=== PATIENT | female | born 1990 | race American Indian/Alaskan Native ===

== ENCOUNTER 2018-09-18 19:37 | Emergency (ER) | payer SELFPAY ==
[~2018-09-18] VITALS: Ht 157.5 cm; Wt 59.1 kg
[~2018-09-18 19:37] MED LIST: DIPH-423 PO; EPIN0.3A3 IM; EPIN0.3P3 IM; PRED20TA PO
[2018-09-18] MEDS ORDERED: predniSONE 20 mg tablet PO ONE (20:00)
[2018-09-18] MEDS ORDERED: famotidine 20mg tablet PO ONE (20:00)
[2018-09-18] MEDS ORDERED: diphenhydrAMINE 25mg capsule PO ONE (20:00)
[2018-09-18] MEDS ORDERED: FAMO-128 PO (20:01)
[2018-09-18] MEDS ORDERED: DIPH25CA83 PO (20:01)
[2018-09-18] MEDS ORDERED: TETanus/Pertussis (Acell)/Diphther VAC/PF (Tdap-Adult) 0.5ml syringe IM ONE (20:10)
[2018-09-18 20:13] VITALS: BP 120/74
== END 2018-09-18 20:23 | disposition home or self-care (01) ==
LOC: ER 19:39
DX: T63.441A Toxic effect of venom of bees, accidental (unintentional), initial encounter (principal); R22.0 Localized swelling, mass and lump, head; F12.90 Cannabis use, unspecified, uncomplicated; Z88.0 Allergy status to penicillin; Z88.1 Allergy status to other antibiotic agents; Z91.030 Bee allergy status; Z79.899 Other long term (current) drug therapy; Y92.89 Other specified places as the place of occurrence of the external cause
CPT/HCPCS: 90471; 90715; 99284; J7512; Q0163